=== PATIENT | female | born 1960 | race Asian ===

== ENCOUNTER 2016-09-29 05:34 | Day surgery (SDC) | payer OTHER ==
[~2016-09-29] VITALS: Ht 144.8 cm; Wt 50.0 kg
[~2016-09-29 05:34] MED LIST: MONT10TA21 PO; PRED10TA3 PO
[2016-09-29] MEDS ORDERED: SODIUM CHLORIDE 0.9% 1,000 ML IV ONE ×2 (06:01→06:45)
[2016-09-29] MEDS ORDERED: FentaNYL CITRATE-PF 100 MCG/2 ML VIAL ONE (07:55)
[2016-09-29] MEDS ORDERED: MIDAZOLAM HCL 2 MG/2 ML VIAL ONE (07:56)
[2016-09-29] MEDS ORDERED: MethylPREDNISolone SOD SUCC 125 MG/2 ML VIAL IVP ONE (08:30)
[2016-09-29] MEDS ORDERED: MethylPREDNISolone SOD SUCC 125 MG/2 ML VIAL ONE (09:06)
[2016-09-29] MEDS ORDERED: BENZOCAINE 20% 50 MCG/SPRAY 57 GM TP ONE (16:34)
[2016-09-29] MEDS ORDERED: LIDOCAINE HCL 4% 50 ML SOLUTION TP ONE (16:34)
[2016-09-29] MEDS ORDERED: LIDOCAINE HCL 2% 30 ML JELLY TP ONE (16:34)
[2016-09-29] MEDS ORDERED: OXYGEN THERAPY IH SCH (20:00)
== END 2016-09-29 09:48 | disposition home or self-care (01) ==
LOC: SURGERY 05:34
PROVIDERS: ATTEND Internal Medicine Critical Care Medicine
DX: J38.4 Edema of larynx (principal); B37.0 Candidal stomatitis; J45.909 Unspecified asthma, uncomplicated; M54.9 Dorsalgia, unspecified; M54.30 Sciatica, unspecified side; Z98.890 Other specified postprocedural states; Z87.19 Personal history of other diseases of the digestive system
CPT/HCPCS: 31623; 31624; 71010; 87015 ×2; 87070; 87101; 87205; 87220; 88108; 88312; 94640; J2250; J2930; J3010; J7030